=== PATIENT | male | born 1955 | race Two or more races ===

== ENCOUNTER 2019-04-19 07:35 | Emergency (ER) | payer BC ==
--- NOTE | 2019-04-19 08:10 | PDOC ---
History of Present Illness - General Chief Complaint: Poison [place],Poison Martha Exposure Stated Complaint: POISON MARTHA Time Seen by Provider: 04/19/19 08:05 History Source: Patient Exam Limitations: No Limitations (poison martha rash to b/l forearm X 1 week) - History of Present Illness Location: reports: extremities (upper extremities) Associated Symptoms: reports: blisters, rash. denies: fever, flushing, hives, nasal congestion, numbness, pallor, paresthesia, petechiae, sore throat, swelling/mass/lumps, tingling Past History - Travel Traveled outside of the country in the last 30 days: No Close contact w/someone who was outside of country & ill: No - Past Medical History Allergies/Adverse Reactions: Allergies Allergy/AdvReac Type Severity Reaction Status Date / Time No Known Allergies Allergy Verified 04/19/19 07:47 Home Medications: Ambulatory Orders Prednisolone [Millipred] 10 mg PO ASDIR 04/19/19 Triamcinolone 0.1% Cream [Aristocort] 1 applic TP BID 04/19/19 COPD: No Hypercholesterolemia: Yes - Immunization History Immunization Up to Date: No - Suicide/Smoking/Psychosocial Hx Smoking History: Never smoked Have you smoked in the past 12 months: No Information on smoking cessation initiated: No Hx Alcohol Use: No Drug/Substance Use Hx: No Review of Systems - Review of Systems Is the patient limited Macedonian proficient: No Constitutional: No: Chills, Fever Integumentary: Yes: Erythema, Rash. No: Bruising, Flushing, Lesions, Lumps, Pruritus, Sweating Neurological: No: Numbness, Paresthesia, Tingling, Weakness *Physical Exam - Vital Signs Last Vital Signs Temp Pulse Resp BP Pulse Ox 98.3 F 99 H 16 162/96 98 04/19/19 07:43 04/19/19 07:43 04/19/19 07:43 04/19/19 07:43 04/19/19 07:43 - Physical Exam General Appearance: Yes: Nourished, Appropriately Dressed Extremity: positive: Normal Capillary Refill, Normal Inspection, Normal Range of Motion Integumentary: positive: Erythema, Rash, Other (erythematous blisters noted in b /l arms, no warmth) Neurologic: positive: grocery sacker II-XII NML intact, Fully Oriented, Alert, Normal Mood/ Affect, Normal Response, Motor Strength /5 Medical Decision Making - Medical Decision Making 04/19/19 08:12 Patient is a 63 years old male presents for poison Martha rash evaluation, Rash is in b/l forearm X 1wk. Patient was seen by his PCP yesterday he was given a prescription for prednisone taper and triamcinolone ointment. patient did not take medication however presented to the er this morning with pain and discomfort of bilateral arm. patient denies any fever, chills he is up-to-date with his tetanus. examination consist of poison martha persistent bilateral forearm there is some there are some erythematous area but there is no warmth there is no sign of any secondary infection appreciated. patient otherwise has stable vital signs is okay patient advised to start medication as previously prescribed by pcp. 04/19/19 08:19 *DC/Admit/Observation/Transfer Diagnosis at time of Disposition: Poison martha - Discharge Dispostion Disposition: HOME Condition at time of disposition: Stable Decision to Admit order: No - Referrals Referrals: Vamsi Avila [Primary Care Provider] - - Patient Instructions Additional Instructions: Please start taking medication as previously prescribed by doctor yesterday take motrin for pain return to the ER If worsening symptoms occurs - Post Discharge Activity
[2019-04-19 08:27] VITALS: BP 162/96; PULSE 99; TEMP 98.3; BMI 25.8
== END 2019-04-19 08:15 | disposition home or self-care (01) ==
LOC: JERFT 07:35 → JER 07:35 → JERFT 08:15
DX: L23.7 Allergic contact dermatitis due to plants, except food (principal); E78.00 Pure hypercholesterolemia, unspecified
CPT/HCPCS: 99281-25

== ENCOUNTER 2024-07-04 17:13 | Emergency (ER) | payer BC, OTHER ==
[2024-07-04 17:34] VITALS: BP 158/90; PULSE 83; RESP 18; TEMP 98.4; BMI 25.8
== END 2024-07-04 19:14 | disposition home or self-care (01) ==
LOC: JER 17:13
DX: S00.93XA Contusion of unspecified part of head, initial encounter (principal); V49.40XA Driver injured in collision with unspecified motor vehicles in traffic accident, initial encounter; Y92.410 Unspecified street and highway as the place of occurrence of the external cause
CPT/HCPCS: 70450-TC; 72125-TC; 99284-25